=== PATIENT | male | born 1965 | race Caucasian/White ===

== ENCOUNTER 2022-10-16 23:40 | Inpatient (IN) | payer MEDICAID, OTHER ==
[~2022-10-16] VITALS: Ht 182.9 cm; Wt 86.2 kg
[~2022-10-16 23:40] MED LIST: ACET650T; ACET650T1; ALBU0.0965 INH; CARV12.5; CARV12.52; CHLO4TAB PO; CLOP75TA; CLOP75TA PO; FLO220 INH; IPRA12.9; ISOS30TA23; LISI10TA30 PO; MIRT-35; NITR0.4T95 SL; PANT40EC; PANT40PD1; SIMV-33 PO; [UNRECOGNIZED DRUG - CODE]; [UNRECOGNIZED DRUG - CODE]; [UNRECOGNIZED DRUG - CODE]; [UNRECOGNIZED DRUG - CODE]
[2022-10-17 00:18] VITALS: BP 129/98
[2022-10-17] MEDS ORDERED: ONDANSETRON 4 MG/2 ML VIAL IVP ONE (00:35)
[2022-10-17] MEDS ORDERED: MORPHINE SULFATE 4 MG/ML SYR IVP ONE (00:35)
[2022-10-17] MEDS ORDERED: NACL 0.9% 500 ML IV ONE (00:35)
--- NOTE | 2022-10-17 00:55 | NUR ---
Patient resting in bed, A/Ox4, chest rise and fall symmetrical, no s/s of distress, on monitor.
--- NOTE | 2022-10-17 01:00 | NUR ---
Urine emptied 700 mL, yellow/clear. Patient given new empty urinal.
[2022-10-17 01:12] LABS: BASOPHILS # (AUTO) 0.1 K/uL (0.00-0.22); BASOPHILS % (AUTO) 1.1 % (0.0-2.0); EOSINOPHILS # (AUTO) 0.1 K/uL (0-0.4); EOSINOPHILS % (AUTO) 1.3 % (0.0-4.0); HEMATOCRIT 40.5 % (36-52); HEMOGLOBIN 13.7 g/dL (12.0-18.0); LYMPHOCYTES # (AUTO) 1.9 K/uL (2.0-11.5); LYMPHOCYTES % (AUTO) 28.2 % (20.5-51.1); MEAN CORPUSCULAR HEMOGLOBIN 31 pg (27-31); MEAN CORPUSCULAR HGB CONC 34 g/dL (33-37); MEAN CORPUSCULAR VOLUME 91.5 fL (80-94); MONOCYTES # (AUTO) 0.5 K/uL (0.8-1.0); MONOCYTES % (AUTO) 7.7 % (1.7-9.3); NEUTROPHILS # (AUTO) 4.1 K/uL (1.8-7.7); NEUTROPHILS % (AUTO) 61.7 % (42.2-75.2); PLATELET COUNT (AUTO) 221 K/uL (140-450); RED BLOOD CELL COUNT(AUTO) 4.43 MIL/uL (4.20-6.10); RED CELL DISTRIBUTION WIDTH 14.1 % (11.6-13.7); WHITE BLOOD COUNT (AUTO) 6.7 K/uL (4.8-10.8)
[2022-10-17 01:34] LABS: ALBUMIN 3.2 g/dL (3.4-5.0); CARBON DIOXIDE 23.9 mmol/L (21-32); CREATININE 1.3 mg/dL (0.6-1.3); POTASSIUM 3.9 mmol/L (3.5-5.1); TOTAL BILIRUBIN 0.6 mg/dL (0.0-1.0)
--- NOTE | 2022-10-17 02:00 | NUR ---
Patient resting in bed, A/Ox4, chest rise and fall symmetrical, no c/o pain or s/s of distress, on monitor.
[2022-10-17] MEDS ORDERED: FUROSEMIDE 100 MG/10 ML VIAL IVP ONE (02:20)
[2022-10-17] MEDS ORDERED: HYDROcodone/APAP 5/325 MG 1 TAB TAB PO ONE (02:40)
[2022-10-17 02:56] LABS: APPEARANCE,URINE CLEAR (CLEAR); BILIRUBIN,URINE NEGATIVE (NEGATIVE); BLOOD, URINE NEGATIVE (NEGATIVE); COLOR,URINE YELLOW (YELLOW); LEUKOCYTE ESTERASE ,URINE NEGATIVE (NEGATIVE); NITRITE, URINE NEGATIVE (NEGATIVE); UGLUCOSE NEGATIVE (NEGATIVE)
[2022-10-17] MEDS ORDERED: POTASSIUM CHLORIDE 10 MEQ TABER PO PRN (03:25)
[2022-10-17] MEDS ORDERED: MAG SULF 2000 MG/WATER PREMIX 50 ML IV PRN (03:25)
[2022-10-17] MEDS ORDERED: MAGNESIUM OXIDE 400 MG TAB PO PRN (03:25)
[2022-10-17] MEDS ORDERED: ACETAMINOPHEN 325 MG TAB PO PRN (03:25)
[2022-10-17] MEDS ORDERED: KCL 20 MEQ IN 100 mL PREMIX 200 ML IV PRN (03:25)
[2022-10-17] MEDS ORDERED: HYDROcodone/APAP 5/325 MG 1 TAB TAB PO PRN (03:25)
[2022-10-17] MEDS ORDERED: MORPHINE SULFATE 2 MG/ML SYR IVP PRN (03:25)
--- NOTE | 2022-10-17 04:00 | NUR ---
Patient resting in bed with eyes closed, A/Ox4, chest rise and fall symmetrical, no c/o pain or s/s of distress, on monitor.
--- NOTE | 2022-10-17 04:05 | NUR ---
Urine emptied 650 mL, yellow/clear. Patient given new empty urinal.
--- NOTE | 2022-10-17 05:45 | NUR ---
Urine emptied 850mL, yellow/clear. Patient given new empty urinal.
--- NOTE | 2022-10-17 05:50 | NUR ---
Patient stated, in front of Charge Nurse Aydee RN, that he did not want to go back to his bed because he "will piss himself," even though patient's urinals have been emptied multiple times throughout the patient's stay, immediately upon his request. Patient stated twice, "I dont want this fucking idiot taking care of me," pointing at primary RN. Patient was informed by Charge Nurse Aydee RN that disrespect towards staff is not tolerated. Patient then was asked again to go christine to his bed. Patient then stated he wanted to leave." Patient signed AMA form and requested to have IV removed. Patient's IV was removed utilizing aseptic technique, whole IV catheter intact. Patient left with all belongings.
[2022-10-17 06:00] VITALS: BP 124/85
--- NOTE | 2022-10-17 06:03 | NUR ---
PT WISHED TO LEAVE AMA. COMMISSARY SUPERINTENDENT PHYSCIAN PAGED FOR NOTIFICATION.
--- NOTE | 2022-10-17 06:05 | NUR ---
Patient does not wish to proceed with medical care recommended by Dr Rivera. Patient given information related to possible complications, up to and including , which could occur as a result of leaving hospital at this time. Patient verbalizes understanding of risks involved leaving against medical advice. Patient has signed AMA form.
--- NOTE | 2022-10-17 06:18 | NUR ---
Note genesisparas in EDM - 10/17/22 at 0618 by [id number] Patient does not wish to proceed with medical care recommended by Dr Rivera. Patient given information related to possible complications, up to and including , which could occur as a result of leaving hospital at this time. Patient verbalizes understanding of risks involved leaving against medical advice. Patient has signed AMA form.
[2022-10-17] MEDS ORDERED: FUROSEMIDE 40 MG/4 ML VIAL IVP SCH (09:00)
== END 2022-10-17 05:50 | disposition left against medical advice (07) | DRG 501 ==
LOC: MED 23:40 → MTU 10-17 03:28
PROVIDERS: ADMIT Hospitalist; ATTEND Internal Medicine
DX: N50.82 Scrotal pain (principal); I50.33 Acute on chronic diastolic (congestive) heart failure; E44.1 Mild protein-calorie malnutrition; I11.0 Hypertensive heart disease with heart failure; I25.2 Old myocardial infarction; J45.909 Unspecified asthma, uncomplicated; Z20.822 Contact with and (suspected) exposure to COVID-19; N50.89 Other specified disorders of the male genital organs; Z68.25 Body mass index [BMI] 25.0-25.9, adult; R07.89 Other chest pain
CPT/HCPCS: 36415; 71045; 76870; 80053; 81003; 82550; 82553; 83605; 83880; 84484; 85025; 87040; 87086; 96361; 96374; 96375; 99285; J1940; J2270; J2405; Q0092

== ENCOUNTER 2023-11-29 10:23 | Inpatient (IN) | payer MEDICAID, OTHER ==
[~2023-11-29] VITALS: Ht 182.9 cm; Wt 90.7 kg
[2023-11-29 10:40] VITALS: BP 126/88; PULSE 110; RESP 18; TEMP 98.3; O2SAT 95
[2023-11-29] MEDS: ALBUTEROL HFA MDI 90 MCG/ACTUATION 8 GM INH ONE (11:15)
[2023-11-29 11:17] LABS: BASOPHILS % (AUTO) 0.5 % (0.0-2.0); EOSINOPHILS # (AUTO) 0.1 K/uL (0-0.4); EOSINOPHILS % (AUTO) 1.4 % (0.0-4.0); HEMATOCRIT 37.9 % (36-52); LYMPHOCYTES # (AUTO) 1.7 K/uL (2.0-11.5); LYMPHOCYTES % (AUTO) 17.4 % (20.5-51.1); MEAN CORPUSCULAR HEMOGLOBIN 31 pg (27-31); MEAN CORPUSCULAR HGB CONC 34 g/dL (33-37); MEAN CORPUSCULAR VOLUME 91.3 fL (80-94); MONOCYTES # (AUTO) 0.7 K/uL (0.8-1.0); MONOCYTES % (AUTO) 6.8 % (1.7-9.3); NEUTROPHILS # (AUTO) 7.2 K/uL (1.8-7.7); NEUTROPHILS % (AUTO) 73.9 % (42.2-75.2); PLATELET COUNT (AUTO) 325 K/uL (140-450); RED BLOOD CELL COUNT(AUTO) 4.15 MIL/uL (4.20-6.10); RED CELL DISTRIBUTION WIDTH 13.9 % (11.6-13.7); WHITE BLOOD COUNT (AUTO) 9.8 K/uL (4.8-10.8)
[2023-11-29] MEDS: ASPIRIN 81 MG TAB.CHEW PO ONE (11:18)
[2023-11-29] MEDS: KETOROLAC 30 MG/ML VIAL IVP ONE (11:19)
[2023-11-29] MEDS: methylPREDNISolone SS 125 MG/2 ML VIAL IVP ONE (11:22)
[2023-11-29] MEDS: LEVOFLOXACIN 500 MG/D5W PREMIX 100 ML IV ONE (11:27)
[2023-11-29 11:36] LABS: LACTIC ACID 1.6 mmol/L (0.4-2.0)
[2023-11-29 11:38] LABS: ANION GAP 13.3 (8-16); CALCIUM 9.9 mg/dL (8.5-10.1); CARBON DIOXIDE 25.3 mmol/L (21-32); CREATININE 1.2 mg/dL (0.6-1.3); POTASSIUM 4.6 mmol/L (3.5-5.1)
[2023-11-29 11:41] LABS: ALANINE AMINOTRANSFERASE 39 U/L (12-78); ALBUMIN 3.2 g/dL (3.4-5.0); ALKALINE PHOSPHATASE 112 U/L (50-136); ASPARTATE AMINOTRANSFERASE 24 U/L (15-37); BILIRUBIN,DIRECT 0.1 mg/dL (0.0-0.3); LIPASE 34 U/L (16-77); TOTAL BILIRUBIN 0.4 mg/dL (0.0-1.0); TOTAL PROTEIN, SERUM 7.1 g/dL (6.4-8.2)
[2023-11-29 12:00] LABS: FLU B ANTIGEN negative (NEGATIVE)
[2023-11-29 12:05] LABS: FLU A ANTIGEN POSITIVE (NEGATIVE)
[2023-11-29 12:06] VITALS: PULSE 101; RESP 24; O2SAT 93
[2023-11-29] MEDS ORDERED: ONDANSETRON 4 MG/2 ML VIAL IVP PRN (12:50)
[2023-11-29] MEDS ORDERED: ZOLPIDEM 5 MG TAB PO PRN (12:50)
[2023-11-29] MEDS ORDERED: KCL 20 MEQ IN 100 mL PREMIX 200 ML IV PRN (12:50)
[2023-11-29] MEDS ORDERED: MAG SULF 2000 MG/WATER PREMIX 50 ML IV PRN (12:50)
[2023-11-29] MEDS ORDERED: ACETAMINOPHEN 325 MG TAB PO PRN (12:50)
[2023-11-29] MEDS ORDERED: POTASSIUM CHLORIDE 10 MEQ TABER PO PRN (12:50)
[2023-11-29] MEDS ORDERED: MAGNESIUM OXIDE 400 MG TAB PO PRN (12:50)
[2023-11-29] MEDS ORDERED: SPIR25TA20 PO (12:53)
[2023-11-29] MEDS ORDERED: CARV3.122 PO (12:55)
[2023-11-29] MEDS ORDERED: ACET-2214 PO (12:55)
[2023-11-29] MEDS ORDERED: CLOP75TA55 PO (12:55)
[2023-11-29] MEDS ORDERED: DAPA10TA PO (12:55)
[2023-11-29] MEDS ORDERED: BUDE1AER INH (12:55)
[2023-11-29] MEDS ORDERED: ALBUTEROL SULFATE/IPRATROPIU 3 ML SOL IH PRN (12:55)
[2023-11-29] MEDS ORDERED: ASPI-1856 PO (12:55)
[2023-11-29] MEDS ORDERED: FURO40TA9 PO (12:55)
[2023-11-29] MEDS: OSELTAMIVIR PHOSPHATE 75 MG CAP PO ONE ×2 (13:00→14:53)
[2023-11-29] MEDS: FUROSEMIDE 40 MG/4 ML VIAL IVP SCH (14:33)
[2023-11-29] MEDS: HYDROcodone/APAP 5/325 MG 1 TAB TAB PO PRN (14:49)
[2023-11-29] MEDS ORDERED: OSELTAMIVIR PHOSPHATE 75 MG CAP ONE (14:52)
[2023-11-29 16:29] LABS: APPEARANCE,URINE CLEAR (CLEAR); BILIRUBIN,URINE NEGATIVE (NEGATIVE); BLOOD, URINE NEGATIVE (NEGATIVE); COLOR,URINE YELLOW (YELLOW); LEUKOCYTE ESTERASE ,URINE NEGATIVE (NEGATIVE); NITRITE, URINE NEGATIVE (NEGATIVE); PROTEIN,URINE NEGATIVE (NEGATIVE); UGLUCOSE NEGATIVE (NEGATIVE); UROBILINOGEN,URINE 0.2 EU/dL (0.2 - 1)
[2023-11-29] MEDS: LORazepam 1 MG TAB PO PRN (16:42)
[2023-11-29 17:00] VITALS: BP 135/82; PULSE 98; RESP 17; TEMP 97.1; O2SAT 96
[2023-11-29 17:29] VITALS: BP 135/82; PULSE 98; RESP 17; TEMP 97.1; O2SAT 96
[2023-11-29 17:50] VITALS: PULSE 98; RESP 17; O2SAT 96
[2023-11-29 20:00] VITALS: BP_SYST 122; BP_SYST 135; BP_DIAS 77; BP_DIAS 82; PULSE 100; PULSE 96; PULSE 98; PULSE 99; RESP 18; TEMP 96.2; O2SAT 96
[2023-11-29] MEDS: methylPREDNISolone SS 40 MG/ML VIAL IVP SCH (21:31)
[2023-11-30] VITALS: BP 126/76; PULSE 106; PULSE 96; RESP 18; TEMP 97.5; O2SAT 97
[2023-11-30 04:00] VITALS: BP 119/76; PULSE 106; RESP 18; TEMP 97.3; O2SAT 97
[2023-11-30 06:01] VITALS: O2SAT 97
[2023-11-30 06:19] LABS: ALBUMIN 3.1 g/dL (3.4-5.0); ANION GAP 12.9 (8-16); CALCIUM 9.5 mg/dL (8.5-10.1); CARBON DIOXIDE 28.7 mmol/L (21-32); CREATININE 1.5 mg/dL (0.6-1.3); MAGNESIUM 2.3 mg/dL (1.8-2.4); POTASSIUM 4.6 mmol/L (3.5-5.1); TOTAL BILIRUBIN 0.5 mg/dL (0.0-1.0); TOTAL PROTEIN, SERUM 7.3 g/dL (6.4-8.2)
[2023-11-30 06:34] LABS: BASOPHILS % (AUTO) 0.2 % (0.0-2.0); HEMATOCRIT 41.4 % (36-52); HEMOGLOBIN 14.1 g/dL (12.0-18.0); LYMPHOCYTES # (AUTO) 0.9 K/uL (2.0-11.5); MEAN CORPUSCULAR HEMOGLOBIN 31 pg (27-31); MEAN CORPUSCULAR HGB CONC 34 g/dL (33-37); MEAN CORPUSCULAR VOLUME 91.8 fL (80-94); MONOCYTES # (AUTO) 0.1 K/uL (0.8-1.0); MONOCYTES % (AUTO) 0.6 % (1.7-9.3); NEUTROPHILS # (AUTO) 14.6 K/uL (1.8-7.7); NEUTROPHILS % (AUTO) 93.2 % (42.2-75.2); PLATELET COUNT (AUTO) 391 K/uL (140-450); RED BLOOD CELL COUNT(AUTO) 4.51 MIL/uL (4.20-6.10); RED CELL DISTRIBUTION WIDTH 13.6 % (11.6-13.7); WHITE BLOOD COUNT (AUTO) 15.7 K/uL (4.8-10.8)
[2023-11-30] MEDS ORDERED: AZITHROMYCIN 250 MG TAB PO SCH (09:00)
[2023-11-30] MEDS ORDERED: DOCUSATE SODIUM 100 MG GELCAP PO SCH (09:00)
[2023-11-30] MEDS ORDERED: ENOXAPARIN 40 MG/0.4 ML SYR SUBQ SCH (09:00)
== END 2023-11-30 06:10 | disposition left against medical advice (07) | DRG 140 ==
LOC: MED 10:23 → MTU 12:54
PROVIDERS: ADMIT Hospitalist; ATTEND Hospitalist
DX: J44.0 Chronic obstructive pulmonary disease with (acute) lower respiratory infection (principal); I50.21 Acute systolic (congestive) heart failure; J10.08 Influenza due to other identified influenza virus with other specified pneumonia; E44.0 Moderate protein-calorie malnutrition; J12.9 Viral pneumonia, unspecified; I69.354 Hemiplegia and hemiparesis following cerebral infarction affecting left non-dominant side; I25.2 Old myocardial infarction; Z20.822 Contact with and (suspected) exposure to COVID-19; Z79.899 Other long term (current) drug therapy; Z68.27 Body mass index [BMI] 27.0-27.9, adult; F19.10 Other psychoactive substance abuse, uncomplicated
CPT/HCPCS: 36415; 71045; 80048; 80053; 80076; 81003; 83605; 83690; 83735; 83880; 84484; 85025; 87040; 87081; 87086; 93005; 94664; 99285; J1885; J1940; J1956; J2919; J2920; J3535